=== PATIENT | male | born 1925 | race Caucasian/White ===

== ENCOUNTER 2017-08-31 13:13 | Emergency (ER) | payer OTHER ==
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
--- NOTE | 2017-08-31 14:49 | RADIOLOGY REPORT ---
EXAMINATION: XR CHEST CLINICAL INFORMATION: Pain after fall COMPARISON: 06/07/2016 TECHNIQUE: 2 views of the chest were obtained. FINDINGS: Lungs are symmetrically expanded. Linear opacity from discoid atelectasis or focal scarring in the left lateral base. No pulmonary consolidation, pleural effusion or pneumothorax. Cardiac silhouette is normal in size. Atherosclerotic aorta is tortuous. 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 No acute, displaced rib fractures are identified on these standard two views of the chest. Note that nondisplaced fractures may be difficult to detect. IMPRESSION: No acute cardiopulmonary findings compared to 06/07/2016.
--- NOTE | 2017-08-31 15:49 | CT SCAN REPORT ---
EXAMINATION: CT CHEST WITHOUT CONTRAST CLINICAL INFORMATION: Fall. Right-sided rib pain. Evaluate for fracture. COMPARISON: Chest radiograph 08/31/2017. TECHNIQUE: Multidetector volumetric CT imaging of the chest was done. Axial MIP volume rendering provided. Sagittal and coronal reformatted images were obtained. DLP: 182.67 mGy-cm FINDINGS: There are acute minimally displaced fractures of the right fifth, sixth, and seventh ribs. Subtle buckling of the right third and fourth ribs are also noted. There is no pneumothorax and no evidence of an associated pulmonary contusion. Minimal subsegmental atelectasis within the right lung base is noted. Lungs are otherwise well expanded and there is no consolidative disease or effusion. There is a coarsely calcified granuloma within the right lower lobe that measures 0.3 cm in diameter. The trachea and major airways are patent. Visualized portions of the thoracic outlet including the thyroid gland are normal. No mediastinal or axillary adenopathy is visualized within the [id number] of this examination. No acute clavicular fracture. A chronic compression deformity of the T4 vertebral body is redemonstrated with impaction of the upper endplate resulting in approximately 30% vertebral body height loss anteriorly. No new vertebral fracture. Limited visualization of the upper abdomen reveals no abnormal finding. IMPRESSION: There are acute minimally displaced fractures of the right fifth, sixth, and seventh ribs. Subtle buckling of the right third and fourth ribs. No associated pulmonary contusion and no pneumothorax. There is a stable chronic compression deformity of the T4 vertebral body with approximately 30% vertebral body height loss anteriorly. No evidence of acute vertebral fracture.
[2017-08-31] MEDS ORDERED: VICODIN 5-3001 EACH PO (16:38)
[2017-08-31 17:19] VITALS: BP 177/77
== END 2017-08-31 18:10 ==
LOC: ERH 13:13
DX: S22.41XA Multiple fractures of ribs, right side, initial encounter for closed fracture (principal); W01.0XXA Fall on same level from slipping, tripping and stumbling without subsequent striking against object, initial encounter; Y92.014 Private driveway to single-family (private) house as the place of occurrence of the external cause; Y93.9 Activity, unspecified; R07.89 Other chest pain
CPT/HCPCS: 71046; 90471